=== PATIENT | female | born 1975 | race Hispanic/Latino ===

== ENCOUNTER 2017-06-28 00:05 | Inpatient (IN) | payer SELFPAY ==
[~2017-06-28] VITALS: Ht 147.3 cm; Wt 86.2 kg
[2017-06-28] VITALS (21 sets, daily range): BP systolic 96–143; BP diastolic 49–78
[~2017-06-28 00:05] MED LIST: ACET1TAB12 PO
[2017-06-28 00:32] LABS: BASOPHILS % (AUTO) 0.7 % (0.0-5.0); EOSINOPHILS % (AUTO) 3.6 % (0.0-8.0); HEMATOCRIT 38.2 % (36-48); LYMPHOCYTES % (AUTO) 15.8 % (21.0-51.0); MEAN CORPUSCULAR HEMOGLOBIN 24.6 pg (27.0-33.0); MEAN CORPUSCULAR HGB CONC 32.7 g/dL (32.0-36.0); MEAN CORPUSCULAR VOLUME 75.2 fL (79-99); MONOCYTES % (AUTO) 5.5 % (3.0-13.0); NEUTROPHILS % (AUTO) 74.4 % (40.0-77.0); PLATELET COUNT (AUTO) 327 K/uL (130-400); RED BLOOD CELL COUNT(AUTO) 5.08 MIL/uL (4.00-5.50); RED CELL DISTRIBUTION WIDTH 17.1 % (11.0-15.5); WHITE BLOOD COUNT (AUTO) 14.2 K/uL (4.8-10.8)
[2017-06-28 00:40] LABS: BILIRUBIN,URINE Negative (NEGATIVE); COLOR,URINE Yellow (YELLOW); CREATININE 0.6 mg/dL (0.5-1.5); GLUCOSE, URINE (UA) Negative (NEGATIVE); KETONES,URINE Negative (NEGATIVE); LEUKOCYTE ESTERASE ,URINE Negative (NEGATIVE); NITRATE,URINE Negative (NEGATIVE); OCCULT BLOOD,URINE Large (NEGATIVE); PH,URINE 6.5 (5.0-8.0); POTASSIUM 3.5 mmol/L (3.5-5.1); PROTEIN,URINE Negative (NEGATIVE); UROBILINOGEN,URINE 0.2 mg/dL (0.2-1.0)
[2017-06-28 00:42] LABS: APPEARANCE,URINE SLIGHTLY CLOUDY (CLEAR)
[2017-06-28 00:45] LABS: ALBUMIN 3.5 g/dL (3.5-5.0); BILIRUBIN,TOTAL 0.4 mg/dL (0.2-1.0); TOTAL PROTEIN, SERUM 8.1 g/dL (6.0-8.3)
[2017-06-28 00:53] LABS: BACTERIA,URINE Few /HPF (None Seen); MUCUS,URINE Rare LPF (None Seen); SQUAMOUS EPITHELIAL CELL,UR Moderate /LPF (0-2); WBC,URINE 0-1 /HPF (0-1)
[2017-06-28] MEDS ORDERED: ONDANSETRON HCL 4 MG/2 ML VIAL ONE (01:12)
[2017-06-28] MEDS ORDERED: MORPHINE SULFATE 4 MG/1ML SYG ONE (01:12)
[2017-06-28] MEDS ORDERED: SODIUM CHLORIDE 0.9% 1000ML 1,000 ML IV ONE (01:13)
[2017-06-28] MEDS ORDERED: IOPAMIDOL-370 75 ML VIAL IV ONE (02:25)
[2017-06-28] MEDS ORDERED: LEVOFLOXACIN 750 MG/D5W 150 ML 150 ML ONE (04:34)
[2017-06-28] MEDS ORDERED: LACTATED RINGERS 1000ML 1,000 ML IV ONE (04:35)
[2017-06-28] MEDS ORDERED: METRONIDAZOLE 500MG/100ML BAG 100 ML ONE (06:56)
[2017-06-28] MEDS ORDERED: MORPHINE SULFATE 2 MG/ML 1ML SYG IVP PRN (09:00)
[2017-06-28] MEDS ORDERED: ONDANSETRON HCL 4 MG/2 ML VIAL IVP PRN (09:00)
[2017-06-28] MEDS: CEFOXITIN SODIUM 1 GM VIAL IV SCH ×3 (09:47→20:43)
[2017-06-28] MEDS ORDERED: MIDAZOLAM HCL 1 MG/ML 2ML VIAL ONE (10:11)
[2017-06-28] MEDS ORDERED: PROPOFOL 10 MG/ML 20ML VIAL IV ONE (10:12)
[2017-06-28] MEDS ORDERED: FENTANYL CITRATE PF 50 MCG/1 ML 2ML VIAL ONE (10:12)
[2017-06-28] MEDS ORDERED: ACETAMINOPHEN-CODEINE 300/30MG TAB PO PRN (11:30)
[2017-06-28] MEDS ORDERED: KETOROLAC TROMETHAMINE 30MG/ML ONE (11:34)
[2017-06-28] MEDS ORDERED: MEPERIDINE-PF 50 MG/ML SYG ONE ×2 (11:35→11:52)
[2017-06-28] MEDS: LACTATED RINGERS 1000ML 1,000 ML IV SCH ×4 (13:00→21:00)
[2017-06-28] MEDS: ACETAMINOPHEN-CODEINE 300/30MG TAB PO PRN ×2 (13:03→18:10)
[2017-06-29] MEDS: LACTATED RINGERS 1000ML 1,000 ML IV SCH ×4 (00:02→13:00)
[2017-06-29] MEDS: ACETAMINOPHEN-CODEINE 300/30MG TAB PO PRN ×2 (00:55→08:46)
[2017-06-29] MEDS: CEFOXITIN SODIUM 1 GM VIAL IV SCH ×3 (02:53→16:08)
[2017-06-29 03:06] VITALS: BP 97/60
[2017-06-29 07:31] VITALS: BP 103/58
[2017-06-29 11:31] VITALS: BP 96/60
[2017-06-29] MEDS ORDERED: TYL3 PO (14:38)
[2017-06-29 15:47] VITALS: BP 92/56
== END 2017-06-29 17:10 | disposition home or self-care (01) | DRG 343 ==
LOC: EDH 00:05 → EDHIP 00:06 → WSH 08:05
PROVIDERS: ADMIT Surgery; ATTEND Surgery
PROC: 0DTJ0ZZ Resection of Appendix, Open Approach (ICD-10-PCS; principal; 2017-06-28 10:26)
DX: K35.80 Unspecified acute appendicitis (principal); Z28.21 Immunization not carried out because of patient refusal; Z90.49 Acquired absence of other specified parts of digestive tract
CPT/HCPCS: 36415; 74177; 80053; 81001; 81025; 83690; 85025; 88302; A4218; J0694; J1885; J1956; J2175; J2250; J2270; J2405; J2704; J3010; J3490; J7030; J7120; Q9967

== ENCOUNTER 2021-01-11 13:26 | Observation (INO) | payer BC ==
[~2021-01-11] VITALS: Ht 129.5 cm; Wt 76.7 kg
[~2021-01-11 13:26] MED LIST changes: -ACET1TAB12 PO; +TYL3 PO
[2021-01-11 14:00] LABS: APPEARANCE,URINE Clear (CLEAR); BILIRUBIN,URINE Negative (NEGATIVE); COLOR,URINE Yellow (YELLOW); GLUCOSE, URINE (UA) Negative (NEGATIVE); KETONES,URINE Negative (NEGATIVE); LEUKOCYTE ESTERASE ,URINE Negative (NEGATIVE); NITRATE,URINE Negative (NEGATIVE); OCCULT BLOOD,URINE Small (NEGATIVE); PROTEIN,URINE Negative (NEGATIVE)
[2021-01-11 14:02] LABS: HCG,QUAL RESULT NEGATIVE (NEGATIVE)
[2021-01-11 14:09] LABS: AMPHET/METH SCREEN,URINE NEGATIVE (NEGATIVE); BARBITURATE SCREEN, URINE NEGATIVE (NEGATIVE); BENZODIAZEPINES SCREEN,URINE NEGATIVE (NEGATIVE); CANNABINOID SCREEN,URINE NEGATIVE (NEGATIVE); COCAINE SCREEN,URINE NEGATIVE (NEGATIVE); OPIATE SCREEN,URINE NEGATIVE (NEGATIVE); PHENCYCLIDINE SCREEN,URINE NEGATIVE (NEGATIVE)
[2021-01-11 14:11] LABS: BASOPHILS % (AUTO) 0.5 % (0.0-5.0); EOSINOPHILS % (AUTO) 1.1 % (0.0-8.0); HEMATOCRIT 37.1 % (36-48); LYMPHOCYTES % (AUTO) 15.2 % (21.0-51.0); MEAN CORPUSCULAR HEMOGLOBIN 26.9 pg (27.0-33.0); MEAN CORPUSCULAR HGB CONC 31.8 g/dL (32.0-36.0); MEAN CORPUSCULAR VOLUME 84.5 fL (79-99); MONOCYTES % (AUTO) 5.5 % (3.0-13.0); NEUTROPHILS % (AUTO) 77.3 % (40.0-77.0); PLATELET COUNT (AUTO) 355 K/uL (130-400); RED BLOOD CELL COUNT(AUTO) 4.39 MIL/uL (4.00-5.50); RED CELL DISTRIBUTION WIDTH 13.6 % (11.0-15.5); WHITE BLOOD COUNT (AUTO) 11.4 K/uL (4.8-10.8)
[2021-01-11 14:26] LABS: BACTERIA,URINE Rare /HPF (None Seen); RBC,URINE 0-1 /HPF (0-1); SQUAMOUS EPITHELIAL CELL,UR None Seen /HPF (0-2); WBC,URINE 0-1 /HPF (0-1)
[2021-01-11 14:41] LABS: ALANINE AMINOTRANSFERASE 26 U/L (12-78); ALBUMIN 3.4 g/dL (3.5-5.0); ASPARTATE AMINOTRANSFERASE 16 U/L (10-37); BILIRUBIN,TOTAL 0.3 mg/dL (0.2-1.0); CARBON DIOXIDE 28 mmol/L (21-32); CHLORIDE 106 mmol/L (101-111); CREATININE 0.8 mg/dL (0.5-1.5); GLOMERULAR FILTR. RATE CALC 83 mL/min (>60); GLUCOSE,RANDOM 138 mg/dL (70-105); POTASSIUM 3.8 mmol/L (3.5-5.1); SODIUM SERUM 143 mmol/L (136-145); TOTAL PROTEIN, SERUM 7.7 g/dL (6.0-8.3); UREA NITROGEN, BLOOD 11 mg/dL (7-18)
[2021-01-11 14:52] LABS: CRP QUANTITATIVE < 2.00 mg/L (0.00-9.0)
[2021-01-11] MEDS ORDERED: ASPIRIN 325MG TAB PO ONE (16:00)
[2021-01-11] MEDS ORDERED: THIAMINE HCL 100 MG TABLET PO ONE (17:30)
[2021-01-11 17:47] VITALS: BP 145/84
[2021-01-11 20:28] VITALS: BP 113/57
[2021-01-12] VITALS (7 sets, daily range): BP systolic 96–113; BP diastolic 54–99
[2021-01-12 06:25] LABS: BASOPHILS % (AUTO) 0.5 % (0.0-5.0); EOSINOPHILS % (AUTO) 2.7 % (0.0-8.0); HEMATOCRIT 35.2 % (36-48); LYMPHOCYTES % (AUTO) 25.8 % (21.0-51.0); MEAN CORPUSCULAR HEMOGLOBIN 26.4 pg (27.0-33.0); MEAN CORPUSCULAR HGB CONC 31.5 g/dL (32.0-36.0); MEAN CORPUSCULAR VOLUME 83.8 fL (79-99); MONOCYTES % (AUTO) 7.7 % (3.0-13.0); NEUTROPHILS % (AUTO) 62.9 % (40.0-77.0); PLATELET COUNT (AUTO) 328 K/uL (130-400); RED CELL DISTRIBUTION WIDTH 13.7 % (11.0-15.5); WHITE BLOOD COUNT (AUTO) 10.4 K/uL (4.8-10.8)
[2021-01-12 06:41] LABS: CREATININE 0.7 mg/dL (0.5-1.5); POTASSIUM 4.2 mmol/L (3.5-5.1)
[2021-01-12] MEDS: FOLIC ACID 1 MG TABLET PO SCH (10:02)
[2021-01-12 10:06] LABS: % IRON SATURATION 7.3 % (22-44)
[2021-01-13] VITALS: BP 123/64
[2021-01-13 04:00] VITALS: BP 106/66
[2021-01-13 07:28] VITALS: BP 128/68
[2021-01-13 09:12] LABS: BASOPHILS % (AUTO) 0.6 % (0.0-5.0); EOSINOPHILS % (AUTO) 2.1 % (0.0-8.0); HEMATOCRIT 35.6 % (36-48); LYMPHOCYTES % (AUTO) 14.5 % (21.0-51.0); MEAN CORPUSCULAR HEMOGLOBIN 27.3 pg (27.0-33.0); MEAN CORPUSCULAR HGB CONC 32.3 g/dL (32.0-36.0); MEAN CORPUSCULAR VOLUME 84.4 fL (79-99); NEUTROPHILS % (AUTO) 76.3 % (40.0-77.0); PLATELET COUNT (AUTO) 328 K/uL (130-400); RED BLOOD CELL COUNT(AUTO) 4.22 MIL/uL (4.00-5.50); RED CELL DISTRIBUTION WIDTH 13.5 % (11.0-15.5); WHITE BLOOD COUNT (AUTO) 10.3 K/uL (4.8-10.8)
[2021-01-13 09:30] LABS: BILIRUBIN,TOTAL 0.4 mg/dL (0.2-1.0); CREATININE 0.7 mg/dL (0.5-1.5); POTASSIUM 3.9 mmol/L (3.5-5.1); TOTAL PROTEIN, SERUM 6.9 g/dL (6.0-8.3)
[2021-01-13] MEDS: FOLIC ACID 1 MG TABLET PO SCH (09:55)
[2021-01-13] MEDS ORDERED: FOLI1 PO (11:43)
[2021-01-13] MEDS ORDERED: FERR324T4 PO (11:46)
[2021-01-13 11:59] VITALS: BP 112/66
[2021-01-13 12:07] LABS: HEMOGLOBIN A1C 5.9 % (4.0-6.0)
== END 2021-01-13 16:05 | disposition home or self-care (01) ==
LOC: EDH 13:26 → EDHIP 17:16 → 3BH 23:06
PROVIDERS: ADMIT Internal Medicine; ATTEND Internal Medicine
DX: R55 Syncope and collapse (principal); G45.4 Transient global amnesia; N92.0 Excessive and frequent menstruation with regular cycle; I25.10 Atherosclerotic heart disease of native coronary artery without angina pectoris; E66.9 Obesity, unspecified; R73.9 Hyperglycemia, unspecified; R29.700 NIHSS score 0; F80.9 Developmental disorder of speech and language, unspecified; Z79.82 Long term (current) use of aspirin; Z79.899 Other long term (current) drug therapy; Z98.51 Tubal ligation status; Z68.42 Body mass index [BMI] 45.0-49.9, adult; W19.XXXA Unspecified fall, initial encounter; Y92.89 Other specified places as the place of occurrence of the external cause; Y93.89 Activity, other specified; Y99.8 Other external cause status
CPT/HCPCS: 36415; 70450; 70551; 71045; 73030; 80048; 80053; 80305; 81001; 81025; 83036; 83540; 83550; 84145; 84484; 85025; 86140; 92522; 92610; 93005; 93306; 93356; 93880; 95819; 96374; C8929; G0378

== ENCOUNTER 2023-05-10 12:33 | Emergency (ER) | payer BC ==
[~2023-05-10] VITALS: Ht 147.3 cm; Wt 84.4 kg
[~2023-05-10 12:33] MED LIST changes: +FERR324T4 PO; +FOLI1 PO
[2023-05-10 13:36] LABS: BASOPHILS # (AUTO) 0.08 K/uL (0.00-0.20); BASOPHILS % (AUTO) 0.8 % (0.0-5.0); EOSINOPHILS # (AUTO) 0.41 K/uL (0.00-0.70); EOSINOPHILS % (AUTO) 4.3 % (0.0-8.0); HEMATOCRIT 40.7 % (36-48); IMMATURE GRANULOCYTE ABSOLUTE 0.04 K/uL (0-1); LYMPHOCYTES # (AUTO) 1.9 K/uL (1.0-4.8); LYMPHOCYTES % (AUTO) 20.2 % (21.0-51.0); MEAN CORPUSCULAR HEMOGLOBIN 27.8 pg (27.0-33.0); MEAN CORPUSCULAR HGB CONC 33.7 g/dL (32.0-36.0); MEAN CORPUSCULAR VOLUME 82.7 fL (79-99); MONOCYTES # (AUTO) 0.6 K/uL (0.1-1.0); MONOCYTES % (AUTO) 6.3 % (3.0-13.0); NEUTROPHILS # (AUTO) 6.5 K/uL (1.8-7.7); PLATELET COUNT (AUTO) 289 K/uL (130-400); RED BLOOD CELL COUNT(AUTO) 4.92 MIL/uL (4.00-5.50); RED CELL DISTRIBUTION WIDTH 14.1 % (11.0-15.5); WHITE BLOOD COUNT (AUTO) 9.6 K/uL (4.8-10.8)
[2023-05-10 13:47] LABS: CREATININE 0.7 mg/dL (0.5-1.5); POTASSIUM 3.9 mmol/L (3.5-5.1)
[2023-05-10 13:52] LABS: ALBUMIN 3.6 g/dL (3.5-5.0); BILIRUBIN,TOTAL 0.4 mg/dL (0.2-1.0); TOTAL PROTEIN, SERUM 7.9 g/dL (6.0-8.3)
[2023-05-10 15:20] LABS: APPEARANCE,URINE CLEAR (CLEAR); BILIRUBIN,URINE NEGATIVE (NEGATIVE); COLOR,URINE LIGHT-YELLOW (YELLOW); GLUCOSE, URINE (UA) NEGATIVE (NEGATIVE); KETONES,URINE NEGATIVE (NEGATIVE); LEUKOCYTE ESTERASE ,URINE NEGATIVE Leu/uL (NEGATIVE); NITRATE,URINE NEGATIVE (NEGATIVE); OCCULT BLOOD,URINE SMALL (NEGATIVE); PH,URINE 5.5 (5.0-8.0); PROTEIN,URINE NEGATIVE (NEGATIVE); UROBILINOGEN,URINE 0.2 mg/dL (0.2-1.0)
[2023-05-10 15:22] LABS: ADD UA MICROSCOPIC YES
[2023-05-10 15:28] LABS: HCG,QUALITATIVE URINE NEGATIVE (NEGATIVE)
[2023-05-10 15:37] LABS: MUCUS,URINE RARE LPF (None Seen); SQUAMOUS EPITHELIAL CELL,UR FEW /HPF (0-2)
[2023-05-10] MEDS ORDERED: DiphenhydrAMINE HCL 50 MG/ML VIAL IV ONE (17:00)
[2023-05-10] MEDS ORDERED: PROCHLORPERAZINE 10MG/2ML INJ IV ONE (17:00)
[2023-05-10] MEDS ORDERED: SUMA1TAB7 PO (17:20)
[2023-05-10 17:34] VITALS: BP 133/78; PULSE 78; RESP 18; O2SAT 98
== END 2023-05-10 17:35 | disposition home or self-care (01) ==
LOC: EDH 12:33
DX: G43.909 Migraine, unspecified, not intractable, without status migrainosus (principal); G44.209 Tension-type headache, unspecified, not intractable; Z90.49 Acquired absence of other specified parts of digestive tract
CPT/HCPCS: 99284; 96374; 70450; 96375; 80053; 85025; 81001; 81025; 36415; J1200; J0780

== ENCOUNTER 2023-11-16 00:46 | Emergency (ER) | payer BC ==
[~2023-11-16] VITALS: Ht 147.3 cm; Wt 84.4 kg
[~2023-11-16 00:46] MED LIST changes: +SUMA1TAB7 PO
[2023-11-16] MEDS ORDERED: IBUPROFEN 600 MG TABLET PO ONE (02:00)
[2023-11-16] MEDS: ACETAMINOPHEN 500 MG TABLET PO ONE (02:42)
[2023-11-16 03:30] VITALS: BP 122/60; PULSE 80; RESP 16; O2SAT 100
== END 2023-11-16 03:32 | disposition home or self-care (01) ==
LOC: EDH 00:46
DX: S83.92XA Sprain of unspecified site of left knee, initial encounter (principal); Z79.899 Other long term (current) drug therapy; Z98.890 Other specified postprocedural states; Z90.49 Acquired absence of other specified parts of digestive tract; W18.39XA Other fall on same level, initial encounter; Y93.68 Activity, volleyball (beach) (court); Y92.39 Other specified sports and athletic area as the place of occurrence of the external cause; Y99.8 Other external cause status
CPT/HCPCS: 73564; 81025